=== PATIENT | male | born 1965 | race Caucasian/White ===

== ENCOUNTER 2022-04-25 14:19 | Outpatient (CLI) | payer BC, SELFPAY ==
--- NOTE | ~2022-04-25 | CT_ITS ---
EXAMINATION: CT lung screening DATE: 04/25/2022 15:12 INDICATION: Personal history of nicotine dependence, current smoker with 40 pack year history TECHNIQUE: Computed tomography (CT) of the chest was performed without intravenous contrast. The dose -length product (DLP) was 163.36 mGy-cm. Automated exposure control and iterative reconstruction tech [email or web address] were employed. COMPARISON: None FINDINGS: There is mild emphysema. A 4 mm nodule is present in the left upper lobe on image 14. There is a 2 mm the right upper lobe on image 33. No pleural effusion or pneumothorax. The lungs are free of acute opacities. Calcified pulmonary nodules and calcified right hilar lymph nodes are consistent with old granulomatous disease. No pathologically enlarged thoracic lymph nodes are identified. The h eart size is normal. Calcified coronary artery atherosclerosis is noted. Punctate calcifications in a n otherwise normal spleen likely represent healed granulomatous disease. IMPRESSION: 1. Lung-RADS category 2: Benign appearance or behavior. Continue annual screening with noncontrast lo w-dose chest CT in 12 months. Reviewed, dictated and finalized at location A. IMPRESSION: 1. Lung-RADS category 2: Benign appearance or behavior. Continue annual screeni ng with noncontrast low-dose chest CT in 12 months.
== END 2022-04-25 14:20 | disposition home or self-care (01) ==
PROVIDERS: PCP Family Medicine; Visit Provider Physician Assistant
DX: Z12.2 Encounter for screening for malignant neoplasm of respiratory organs (principal); Z72.0 Tobacco use
CPT/HCPCS: 71271

== ENCOUNTER 2023-05-15 16:25 | Outpatient (CLI) | payer BC, SELFPAY ==
--- NOTE | ~2023-05-15 | CT_ITS ---
CT Scan of the Chest without Contrast: Clinical Indication: Lung cancer screening, smoking history Technique: Contiguous sections were acquired throughout the chest without intravenous contrast. Dose reduction technique was used on this scan by utilizing automated exposure control and iterative recon struction technique. The dose-length product (DLP) was 245.59 mGy-cm. COMPARISON: 04/25/2022 Findings: There is no evidence of any significant mediastinal, hilar or axillary lymphadenopathy. Coronary susan ry calcifications are present. There is no evidence of pleural or pericardial effusion. 2 mm right upper lobe pulmonary nodule noted. There is mild biapical paraseptal emphysema. There is a 4 mm left apical pulmonary nodule. Images through the upper abdomen reveal no abnormalities. Impression: Lung RADS 2: Benign appearance. 12 month follow-up screening CT advised. Reviewed, dictated and finalized at [facility]. Impression: Lung RADS 2: Benign appearance. 12 month follow-up screening CT advised.
== END 2023-05-15 16:26 | disposition home or self-care (01) ==
PROVIDERS: PCP Family Medicine; Visit Provider Physician Assistant
DX: Z12.2 Encounter for screening for malignant neoplasm of respiratory organs (principal); F17.210 Nicotine dependence, cigarettes, uncomplicated
CPT/HCPCS: 71271

== ENCOUNTER 2024-07-02 16:37 | Outpatient (CLI) | payer BC, SELFPAY ==
[2024-07-02 17:19] LABS: Hematocrit 46.5 % (42.0-52.0); Hemoglobin 15.5 g/dL (14.0-18.0); Mean Corpuscular HGB Conc 33.3 g/dl (32-36); Mean Corpuscular Hemoglobin 31.6 pg (26-34); Mean Corpuscular Volume 94.9 fl (80-100); Mean Platelet Volume 11.2 fl (7.4-10.4); Platelet Count Result 160 k/mm3 (150-375); Red Cell Distribution Width 11.9 % (11.5-14.5); White Blood Count 7.9 K/mm3 (4.5-10.0)
[2024-07-02 17:22] LABS: Add Urine Microscopic? NO; Appearance Urine Clear (Clear); Bilirubin Urine Negative (Negative); Blood Urine Negative (Negative); Color Urine Yellow (Yellow); Glucose Urine UA Negative (Negative); Ketones Urine Negative (Negative); Leukocyte Esterase Ur Negative LEU/UL (Negative); Nitrate Urine Negative (Negative); Protein Urine Negative (Negative); Urobilinogen Urine 0.2 mg/dL (<2.0); pH Urine 5.5 (5.0-9.0)
[2024-07-02 17:25] LABS: Hemoglobin A1C 5.9 % (<5.7)
[2024-07-02 20:11] LABS: Alanine Aminotransferase 51 U/L (6-50); Alkaline Phosphatase 78 U/L (38-126); Anion Gap 7 mmol/L (4-12); Aspartate Amino Transferase 28 U/L (17-59); Bilirubin,Total 0.4 mg/dL (0.2-1.3); Blood Urea Nitrogen 13 mg/dL (9-20); Calcium 9.3 mg/dL (8.4-10.2); Carbon Dioxide 32 mmol/L (22-30); Chloride 100 mmol/L (98-107); Cholesterol 195 mg/dL (0-200); Estimated Glomerular Filt Rate > 60; Glucose 112 mg/dL (65-110); HDL Direct 42 mg/dL; Sodium 139 mmol/L (137-145); Triglycerides 137 mg/dL (<150)
[2024-07-02 20:24] LABS: LDL Cholesterol Direct 129 mg/dL
[2024-07-02 20:43] LABS: Prostate Specific Antigen 0.9 ng/mL (< OR = 4.0)
== END 2024-07-02 16:38 | disposition home or self-care (01) ==
LOC: ANHLAB 16:39
PROVIDERS: PCP Family Medicine; Visit Provider Family Medicine
DX: Z00.00 Encounter for general adult medical examination without abnormal findings (principal); E78.5 Hyperlipidemia, unspecified; R73.01 Impaired fasting glucose; R35.1 Nocturia
CPT/HCPCS: 36415; 80053; 80061; 81003; 83036; 84153; 84443; 85027

== ENCOUNTER 2024-07-11 15:30 | Outpatient (CLI) | payer BC, SELFPAY ==
--- NOTE | ~2024-07-11 | CT_ITS ---
EXAMINATION: CT lung screening DATE: 07/11/2024 16:02 INDICATION: F17.210 - Nicotine dependence, cigarettes, uncomplicated TECHNIQUE: Computed tomography (CT) of the chest was performed without intravenous contrast. Addition al 3D reconstructions utilizing coronal maximum intensity projection (MIP) were performed. Automated exposure control and iterative reconstruction technique were employed. The dose-length product was 26 0.63 mGy-cm. COMPARISON: None FINDINGS: Mild paraseptal emphysema at the right apex. Again seen are a few unchanged small scattered pulmonary nodules the largest measuring 4 mm at the left apex. Calcified right middle lobe nodules along with calcified right hilar lymph nodes consistent with old granulomatous disease. Chronic peripheral atele ctasis/pleural (scarring at the anteroinferior lingula. No pneumonia, pulmonary edema or pleural effu alaina. Heart size is normal. Atherosclerotic coronary artery calcification. No pericardial effusion. T horacic aorta is normal in caliber. No pathologically enlarged thoracic lymphadenopathy. Diffuse hepa tic steatosis. Multiple splenic calcific lesions consistent with old granulomatous disease. There are few diverticula along the visualized transverse colon adjacent comparison to suggest diverticulitis. Mild thoracic spondylosis with chronic minimal anterior wedging of a few upper thoracic vertebral sarah dies. IMPRESSION: 1. Lung-RADS category 2: Benign appearance or behavior. Continue annual screening with noncontrast lo w-dose chest CT in 12 months. Reviewed, dictated and finalized at location [facility]. IMPRESSION: 1. Lung-RADS category 2: Benign appearance or behavior. Continue annual screeni ng with noncontrast low-dose chest CT in 12 months.
== END 2024-07-11 15:31 | disposition home or self-care (01) ==
LOC: MICIMG 15:31
PROVIDERS: PCP Family Medicine; Visit Provider Family Medicine
DX: Z12.2 Encounter for screening for malignant neoplasm of respiratory organs (principal); F17.210 Nicotine dependence, cigarettes, uncomplicated
CPT/HCPCS: 71271

== ENCOUNTER 2024-12-15 01:01 | Day surgery (SDC) | payer BC, SELFPAY ==
[2024-12-04 14:27] VITALS: BMI 33.2
[2024-12-15 09:07] VITALS: BP 116/75; PULSE 69; RESP 18; TEMP 36.1; O2SAT 98
--- NOTE | 2024-12-15 09:20 | P.PNAN_ITS ---
Anes - Initial Pre Proc Eval Procedure: Operation Date: 12/15/24 10:30 Proposed Procedures p Screening Colonoscopy - Edmundo Ewing MD Date/Time: 12/15/24 09:20 Surgeon: Edmundo Ewing MD Pre Op Diagnosis: personal hx colon polyps Patient Data Age: 59 Gender: M Height: 1.83 m Weight: 120.2 kg Last Vital Signs Temp 36.1 C L 12/15/24 09:07 Pulse 69 12/15/24 09:07 Resp 18 12/15/24 09:07 BP 116/75 12/15/24 09:07 Pulse Ox 98 12/15/24 09:07 O2 Del Method Room Air 12/15/24 09:07 Allergies Allergy/AdvReac Type Severity Reaction Status Date / Time No Known Allergies Allergy Verified 12/15/24 09:05 Home Medications ?Medication ?Instructions ?Recorded ?Confirmed ?Type bupropion HCl 150 mg 24 hr tablet, 150 mg PO QAM #30 tabs 07/02/24 12/04/24 Rx extended release (Wellbutrin XL) Patient hx anesthesia problems: none Family hx anesthesia problems: none Results Review: All pre-operative results and documents have been reviewed as part of the pre- operative evaluation. [facility] Past Medical History Medical History Basal cell carcinoma Personal history of other malignant neoplasm of skin PVCs (premature ventricular contractions) Umbilical hernia without obstruction and without gangrene Family History Family History Mother Diabetes mellitus Father Family history of malignant neoplasm Social History Social History Smoking packs per day: 1 Smoking cigarettes per day: 20.0 Years smoked: 30 Smoking pack-years: 30.00 Smoking status: Current every day smoker Tobacco type: cigarettes Smoking end date: 10/29/15 Alcohol intake: current Substance use: never Living arrangements: with family Occupation/Education: occupation Gender identity (if verbalized by the patient): Male Sexual Orientation (if Verbalized by the Patient): Straight or Heterosexual Spiritual care concerns: No Anes - Eval Final PreProcedure Day of Procedure 12/15/24 09:20 Patient weight: obese Heart: regular rate and rhythm Lungs: clear to auscultation Airway: Mallampati scale class III Neurological: alert and oriented Last oral intake: >/= 8 hours ASA classification: III Emergent: no Anesthetic plan: proceed Anesthesia type and monitoring: general GIVS and standard monitoring Results Review: All pre-operative results and documents have been reviewed as part of the pre- operative evaluation. Informed Consent: The patient's anesthetic plan and its attendant risks and benefits were discussed with the patient/family/POA. Questions were solicited and answers provided to the satisfaction of the patient/family/POA.
[2024-12-15] MEDS: LACTATED RINGERS 1,000 ML 150 ML IV CONT (09:21)
--- NOTE | 2024-12-15 10:20 | PM.HPGS ---
History of Present Illness History of Present Illness Consent: Risks, benefits, and alternatives have been discussed and questions answered. Patient agrees to proceed with procedure. Chief complaint: personal hx colon polyps Narrative: Moisés Smith is a 59 year old male with colon polyp in 2017 Review of Systems Review of Systems: All systems reviewed & are unremarkable except as noted in HPI and below PMFSH Past Medical History Medical History (Updated 12/15/24 @ 10:20 by Edmundo Ewing MD) Colon polyp Umbilical hernia without obstruction and without gangrene PVCs (premature ventricular contractions) Personal history of other malignant neoplasm of skin Basal cell carcinoma Family History Family History Mother Diabetes mellitus Father Family history of malignant neoplasm Social History Social History Smoking packs per day: 1 Smoking cigarettes per day: 20.0 Years smoked: 30 Smoking pack-years: 30.00 Smoking status: Current every day smoker Tobacco type: cigarettes Smoking end date: 10/29/15 Alcohol intake: current Substance use: never Living arrangements: with family Occupation/Education: occupation Gender identity (if verbalized by the patient): Male Sexual Orientation (if Verbalized by the Patient): Straight or Heterosexual Spiritual care concerns: No Meds Home Medications and Allergies Home Medications ?Medication ?Instructions ?Recorded ?Confirmed ?Type bupropion HCl 150 mg 24 hr tablet, 150 mg PO QAM #30 tabs 07/02/24 12/04/24 Rx extended release (Wellbutrin XL) Allergies Allergy/AdvReac Type Severity Reaction Status Date / Time No Known Allergies Allergy Verified 12/15/24 09:05 Vital Signs Vital Signs - 24 hr 12/15/24 09:07 Temperature 97 F L Pulse Rate 69 Respiratory Rate 18 Blood Pressure 116/75 Pulse Oximetry 98 Oxygen Delivery Room Air Exam Const: General: comfortable and no acute distress HENMT: Face/Nose/Sinus: Normal nares present Eyes: General: appearance normal, both eyes and all related structures Neck: Neck: no JVD Resp: Auscultation: clear to auscultation bilaterally Cardio: Rate: regular rate Rhythm: regular rhythm GI: Inspection: non-distended GI Palp: Yes Soft to palpation Skin: General skin exam: normal color Neuro: General: gait normal Speech: normal speech Extrem: General: normal to inspection Psych: Mental Status: mental status grossly normal Assessment and Plan Assessment and plan (1) Colon polyp: Code(s): K63.5 - Polyp of colon Status: Acute Assessment and Plan: colonoscopy
[2024-12-15 10:43] VITALS: BP 106/62; PULSE 72; RESP 18; O2SAT 94
[2024-12-15 10:53] VITALS: BP 112/70; PULSE 70; RESP 18; O2SAT 100
[2024-12-15 11:03] VITALS: BP 110/77; PULSE 82; RESP 18; O2SAT 98
== END 2024-12-15 11:15 | disposition home or self-care (01) ==
PROVIDERS: PCP Family Medicine; Referring Provider Family Medicine; Visit Provider Internal Medicine Gastroenterology
PROC: 0DJD8ZZ Inspection of Lower Intestinal Tract, Via Natural or Artificial Opening Endoscopic (ICD-10-PCS; CPT 45378; principal; 2024-12-15 10:30)
DX: Z12.11 Encounter for screening for malignant neoplasm of colon (principal); D12.0 Benign neoplasm of cecum; D12.2 Benign neoplasm of ascending colon; D12.3 Benign neoplasm of transverse colon; D12.5 Benign neoplasm of sigmoid colon; K57.30 Diverticulosis of large intestine without perforation or abscess without bleeding; Z87.891 Personal history of nicotine dependence; E66.9 Obesity, unspecified; Z68.35 Body mass index [BMI] 35.0-35.9, adult
CPT/HCPCS: 45385; 88305; J2003; J2704; J7120

== ENCOUNTER 2024-12-22 14:58 | Outpatient (CLI) | payer BC, SELFPAY ==
[2024-12-22 16:43] LABS: Influenza A QL RT-PCR Negative (Negative); Influenza B QL RT-PCR Negative (Negative); RSV RNA, RT-PCR Negative (Negative); SARS-CoV-2 RNA PCR Negative (Negative)
--- OUTSIDE RECORDS SUMMARY | 2024-12-22 17:28 | XMS_ITS | Clinical Summary ---
Author Organization [facility] Address [facility] [place] [address] Care Team Providers Care Retail Brand Ambassador Name Role Phone Severino Barillas MD Primary Care Provider [phone] Allergies No known active allergies Medications No known medications Active Problems No known active problems Social History Tobacco Use Types Packs/Day Years Used Date Smoking Tobacco: Former Smokeless Tobacco: Current Alcohol Use Standard Drinks/Week Comments No 0 (1 standard drink = 0.6 oz pur e alcohol) AUDIT-C Answer Date Recorded Frequency of Alcohol Consumption Never 12/02/2018 Average Number of Drinks Not on file 019 Frequency of Binge Drinking Not on file 01/2019 Sex and Gender Information Value Date Recorded Sex Assigned at Not on file Legal Sex Male 7:23 PM CDT Gender Identity Not on file Sexual Orientation Not on file Last Filed Vital Signs Vital Sign Reading Time Taken Comments Blood Pressure 140/78 01/02/2019 7:54 AM [employer] Pulse 84 01/02/2019 7:54 AM [employer] Temperature 37.1 C (98.7 F) 12/02/2018 2:59 PM [employer] Respiratory Rate - - Oxygen Saturation - - Inhaled Oxygen Concentration - - Weight 110.2 kg (243 lb) 01/14/2019 8:59 AM CDT Height 185.4 cm (6' 1 ) 01/14/2019 8:59 AM CDT Body Mass Index 32.06 01/14/2019 8:59 AM CDT Plan of Treatment Health Maintenance Due Date Last Done Comments Colorectal Cancer Screening Colonoscopy (10 Years) 1966 Annual Physical 1969 Hepatitis C 1984 DTaP, Tdap and Td Vaccines ( 1 - Tdap) 1985 Hepatitis B Vaccines (1 of 3 - 19+ 3-dose series) 1985 Zoster Vaccines (1 of 2) 2016 COVID-19 Vaccine (1 - 2023-2 5 season) 2024 Influenza Adult (#1) 2024 Meningococcal B Vaccine Aged Out No l onger eligible based on patient's age to complete this topic Meningococcal Vaccine Aged Out No avel kesha eligible based on patient's age to complete this topic Pneumococcal Vaccine: Pediat rics (0 to 5 Years) and At-Risk Patients (6 to 64 Years) Aged Out No longer eligible b ased on patient's age to complete this topic RSV Immunizations Under 20 Months Aged Out No longer eligible based on patient's age to complete this topic [place] [address] [place] [address] [facility] Care Teams Retail Brand Ambassador Relationship Specialty Start Date End Date Severino Barillas MD [address] [facility] [address] [place] [address] PCP - General FAMILY PRACTICE 12/02/18
--- OUTSIDE RECORDS SUMMARY | 2024-12-22 17:28 | XMS_ITS | Encounter Summary ---
Author Organization [facility] Address [facility] [place] [address] Care Team Providers Care Carpenter/Labor Name Role Phone Severino Barillas MD Primary Care Provider [phone] Encounter Details Date Type Department Care Team (Late st Contact Info) Description 12/23/2018 SEMICONDUCTOR TECHNICIAN ONLY [facility] Priority Care - SJimena Bustos [address] [place] [address] Scanned, Documents Social History Tobacco Use Types Packs/Day Years [...] on file Sexual Orientation Not on file documented as of this encounter Progress Notes * Zscanned, Documents - 12/23/2018 12:00 AM CST KESHAV SMITH MD: ACCT: [id number] ADMIT/SERVICE DATE: 12/23/18 DISCHARGE DATE: 12/23/18 : 1965 PT TYPE: DEP SDC SEX: M ORD SITE: [facility] REPORT OF PATHOLOGICAL EXAMINATION DATE OF SURGERY: 12/23/2018 SURGICAL PATH NO: [id number] DATE OBTAINED: 12/23/2018 DATE RETURNED: 12/24/2018 CHART DOCUMENT SPECIMEN: HERNIA SAC GROSS EXAMINATION: THE SPECIMEN IS RECEIVED IN FORMALIN LABELED WITH PATIENT'S NAME AND HERNIA SAC. THE SPECIMEN CONSISTS OF TWO FRAGMENTS OF DARK RED/WU TISSUE MEASURING 2.5 X 2 X 0.5 CM. A CROSS-SECTION OF EACH FRAGMENT IS SUBMITTED IN A SINGLE CASSETTE. MARISA 12/23/2018 12/23/2018 03:20 P MICROSCOPIC EXAMINATION: ?? ELECTRONICALLY SIGNED BY GEOVANNY ALEXANDRA MD 12/25/2018 10:50 A DD: DT: /: DOC NO: [id number] DATE OF SURGERY: 12/23/2018 SURGICAL PATH NO: [id number] DATE OBTAINED: DATE RETURNED: REPORT OF PATHOLOGICAL EXAMINATION DATE OF SURGERY: 12/23/2018 SURGICAL PATH NO: [id number] DATE OBTAINED: DATE RETURNED: REPORT OF PATHOLOGICAL EXAMINATION ADDENDUM *NOTE: NO MICROSCOPIC EXAMINATION SEMICONDUCTOR TECHNICIAN ON PRIMARY DOCUMENT. PATHOLOGICAL DIAGNOSIS: I. TISSUE FROM REPAIR OF UMBILICAL HERNIA: - HERNIA SAC __ SPECIMEN: HERNIA SAC GROSS EXAMINATION: THE SPECIMEN IS RECEIVED IN FORMALIN LABELED WITH PATIENT'S NAME AND HERNIA SAC. THE SPECIMEN CONSISTS OF TWO FRAGMENTS OF DARK RED/WU TISSUE MEASURING 2.5 X 2 X 0.5 CM. A CROSS-SECTION OF EACH FRAGMENT IS SUBMITTED IN A SINGLE CASSETTE. MARISA 12/23/2018 12/23/2018 03:20 P MICROSCOPIC EXAMINATION: MICROSCOPIC EXAMINATION REVEALS SECTIONS OF FIBROADIPOSE TISSUE FOCALLY LINED BY MESOTHELIAL CELLS. ELECTRONICALLY SIGNED BY GEOVANNY ALEXANDRA MD 12/26/2018 01:45 P DT: ABBIE:12/26/2018 DOC NO: [id number] ER SUBSTANDARD documented in this encounter Plan of Treatment Not on file documented as of this encounter Visit Diagnoses Not on filedocumented in this encounter Care Teams Carpenter/Labor Relationship Specialty Start Date End Date Severino Barillas MD [address] [place] [address] PCP - General FAMILY PRACTICE 12/02/18 documented as of this encounter
== END 2024-12-22 14:59 | disposition home or self-care (01) ==
LOC: ANHLAB 15:00
PROVIDERS: PCP Family Medicine; Visit Provider Physician Assistant
DX: R50.9 Fever, unspecified (principal); R05.9 Cough, unspecified
CPT/HCPCS: 87637